=== PATIENT | female | born 1960 | race Caucasian/White ===

== ENCOUNTER → 2018-04-15 | Outpatient (CLI) | payer MEDICAID | LOC: COL.RAD 08:15 | DX: K86.89 Other specified diseases of pancreas (principal); R63.4 Abnormal weight loss | CPT/HCPCS: Q9967 ==

== ENCOUNTER → 2018-05-03 | Outpatient (CLI) | payer MEDICAID | LOC: COL.RAD 10:30 | DX: K86.2 Cyst of pancreas (principal); I81 Portal vein thrombosis; R93.2 Abnormal findings on diagnostic imaging of liver and biliary tract | CPT/HCPCS: A9585 ==

== ENCOUNTER 2018-05-21 12:57 | Day surgery (SDC) | payer MEDICAID ==
[~2018-05-21] VITALS: Ht 162.6 cm; Wt 42.6 kg
[2018-05-21] MEDS ORDERED: NEURONTIN600 MG/TAB PO (13:22)
[2018-05-21] MEDS ORDERED: EFFEXOR 75M75 MG/TAB PO (13:22)
[2018-05-21] MEDS ORDERED: TOPROL XL 50MG50 MG PO (13:22)
[2018-05-21] MEDS ORDERED: VITAMIN D 50,1.25 MG PO (13:23)
[2018-05-21] MEDS ORDERED: KEPPRA 500MG500 MG PO (13:23)
[2018-05-21] MEDS ORDERED: PRIL40 PO (13:23)
[2018-05-21 13:24] VITALS: BP 147/101; PULSE 136; TEMP 98.4
[2018-05-21] MEDS ORDERED: AMITRIPTYLINE H25 M1 PO (13:24)
[2018-05-21] MEDS ORDERED: DILAUDID 2MG TAB2 MG PO (13:24)
[2018-05-21] MEDS ORDERED: ZOFRAN 4MG T4 MG/TAB PO (13:24)
[2018-05-21] MEDS ORDERED: LEVSIN0.125 M1 PO ×2 (14:54→16:21)
[2018-05-21 15:05] VITALS: BP 147/99; PULSE 113; TEMP 98.3
[2018-05-21 15:20] VITALS: BP 149/97; PULSE 107
[2018-05-21 15:35] VITALS: BP 150/101; PULSE 116
[2018-05-23] VITALS (92 sets, daily range): O2SAT 89–100
[2018-05-24] VITALS (590 sets, daily range): O2SAT 73–100
== END 2018-05-21 15:50 | disposition home or self-care (01) ==
LOC: SDCO 12:57
DX: K29.30 Chronic superficial gastritis without bleeding (principal); K44.9 Diaphragmatic hernia without obstruction or gangrene; K21.9 Gastro-esophageal reflux disease without esophagitis; K57.30 Diverticulosis of large intestine without perforation or abscess without bleeding; K64.0 First degree hemorrhoids; R63.4 Abnormal weight loss; I10 Essential (primary) hypertension; G62.9 Polyneuropathy, unspecified; F17.210 Nicotine dependence, cigarettes, uncomplicated; G57.92 Unspecified mononeuropathy of left lower limb; G89.29 Other chronic pain; Z79.891 Long term (current) use of opiate analgesic; R56.9 Unspecified convulsions
CPT/HCPCS: J2704; J7030

== ENCOUNTER 2018-05-23 12:32 | Inpatient (IN) | payer MEDICAID ==
[~2018-05-23] VITALS: Ht 132.1 cm; Wt 49.3 kg
[~2018-05-23 12:32] MED LIST: AMITRIPTYLINE H25 M1 PO; DILAUDID 2MG TAB2 MG PO; EFFEXOR 75M75 MG/TAB PO; KEPPRA 500MG500 MG PO; LEVSIN0.125 M1 PO; NEURONTIN600 MG/TAB PO; PRIL40 PO; TOPROL XL 50MG50 MG PO; VITAMIN D 50,1.25 MG PO; ZOFRAN 4MG T4 MG/TAB PO
[2018-05-23] MEDS ORDERED: ERGOCALCIFER50000 IU PO (12:46)
[2018-05-23] MEDS ORDERED: REGLAN 10MG10 MG/TAB PO (12:46)
[2018-05-23 13:57] LABS: BASO % 0.1 % (0.0-2.0); EOS % 0.1 % (0-4.0); GRAN % 79.2 % (42.2-75.2); HEMOGLOBIN 13.7 g/dl (12.5-16.0); LYMPH % 12.3 % (20.0-51.0); MEAN CELL VOLUME 96 fl (80.0-100.0); MEAN CORPUSCULAR HEMOGLOBIN 35 pg (27.0-31.0); MEAN CORPUSCULAR HGB CONC 36 g/dl (33.0-37.0); MEAN PLATELET VOLUME 10.3 fl (7.4-10.4); MONO # 1.3 (0.1-0.6); MONO % 7.8 % (1.7-9.3); PLATELET COUNT 177 K/mm3 (130-400); RED BLOOD COUNT 3.95 M/mm3 (4.10-5.30); REDCELL DISTRIBUTION WIDTH-CV 12.9 % (11.5-14.5)
[2018-05-23 14:02] LABS: INR 1.2 (0.8-3.0); PROTHROMBIN TIME 13.7 SECONDS (9.7-12.8)
[2018-05-23 14:05] LABS: PARTIAL THROMBOPLASTIN TIME 34.3 SECONDS (26.0-37.0)
[2018-05-23 14:09] LABS: ALANINE AMINOTRANSFERASE 22 U/L (9-52); ALBUMIN 2.7 gm/dL (3.5-5.0); ALKALINE PHOSPHATASE 238 U/L (50-136); ANION GAP 10 mmol/L (7-16); AST,SGOT 40 U/L (15-37); BILIRUBIN,TOTAL 1.5 mg/dL (0.0-1.0); BLOOD UREA NITROGEN 7 mg/dL (7-17); C-REACTIVE PROTEIN 1.1 mg/dL (0.0-0.9); CALCIUM 8.1 mg/dL (8.4-10.2); CARBON DIOXIDE 26 mmol/L (22-30); CHLORIDE 91 mmol/L (98-107); CREATININE, serum 0.62 mg/dL (0.52-1.25); GLUCOSE 112 mg/dL (74-106); LIPASE 297 U/L (23-300); MAGNESIUM 1.3 mg/dL (1.6-2.3); PHOSPHOROUS 4.5 mg/dL (2.5-4.5); SODIUM 128 mmol/L (137-145); TOTAL PROTEIN 6.4 gm/dL (6.4-8.2)
[2018-05-23 14:13] LABS: POTASSIUM 2.2 mmol/L (3.4-5.0)
[2018-05-23 14:18] LABS: AMMONIA < 9 umol/L (11-35); TROPONIN-I < 0.012 ng/mL (0.000-0.034)
[2018-05-23 16:20] LABS: COLLECTION METHOD CLEAN CATCH
[2018-05-23 16:29] LABS: MUCOUS Present /lpf; PH 6 (5-8); SQUAMOUS EPITHELIAL 0-2 /hpf; URINE APPEARANCE Clear; URINE BACTERIA None Seen /hpf; URINE BILIRUBIN Negative (NEGATIVE); URINE BLOOD Negative (NEGATIVE); URINE COLOR Yellow; URINE GLUCOSE Negative (NEGATIVE); URINE KETONE Negative (NEGATIVE); URINE LEUKOCYTE ESTERASE Negative (NEGATIVE); URINE NITRATE Positive (NEGATIVE); URINE PROTEIN(semi-quant) Negative (NEGATIVE); URINE RBC 0-2 /hpf; URINE UROBILINOGEN Negative (NEGATIVE)
[2018-05-23 16:38] LABS: TRICYCLIC ANTIDEPRESS URINE NEGATIVE
[2018-05-23 18:00] VITALS: BP 142/113; PULSE 91; TEMP 98.8
[2018-05-23 18:01] VITALS: BP 142/113; PULSE 91; TEMP 98.8
[2018-05-23 20:00] VITALS: BP 148/99; PULSE 84; TEMP 97.3
[2018-05-24] VITALS (9 sets, daily range): BP systolic 102–178; BP diastolic 59–98; PULSE 82–115; TEMP 97–98.8
[2018-05-24 05:07] LABS: BASO % 0.1 % (0.0-2.0); EOS % 0.1 % (0-4.0); GRAN # 12.8 (1.4-6.5); GRAN % 81.1 % (42.2-75.2); HEMOGLOBIN 12.8 g/dl (12.5-16.0); LYMPH # 1.6 (1.2-3.4); LYMPH % 10.4 % (20.0-51.0); MEAN CELL VOLUME 97 fl (80.0-100.0); MEAN CORPUSCULAR HEMOGLOBIN 34 pg (27.0-31.0); MEAN CORPUSCULAR HGB CONC 36 g/dl (33.0-37.0); MEAN PLATELET VOLUME 10.1 fl (7.4-10.4); MONO # 1.2 (0.1-0.6); MONO % 7.7 % (1.7-9.3); PLATELET COUNT 136 K/mm3 (130-400); RED BLOOD COUNT 3.73 M/mm3 (4.10-5.30); REDCELL DISTRIBUTION WIDTH-CV 12.9 % (11.5-14.5)
[2018-05-24 05:18] LABS: ALBUMIN 2.3 gm/dL (3.5-5.0); CALCIUM 7.4 mg/dL (8.4-10.2); CREATININE, serum 0.57 mg/dL (0.52-1.25); MAGNESIUM 2.3 mg/dL (1.6-2.3); PHOSPHOROUS 3.3 mg/dL (2.5-4.5); POTASSIUM 3.3 mmol/L (3.4-5.0); TOTAL PROTEIN 5.5 gm/dL (6.4-8.2)
[2018-05-25] VITALS (7 sets, daily range): BP systolic 85–128; BP diastolic 63–89; PULSE 65–102; TEMP 98–99.8
[2018-05-25 07:06] LABS: BASO % 0.3 % (0.0-2.0); EOS # 0.3 (0.0-0.7); EOS % 2.8 % (0-4.0); GRAN # 6.1 (1.4-6.5); GRAN % 59.7 % (42.2-75.2); LYMPH # 2.9 (1.2-3.4); LYMPH % 28.8 % (20.0-51.0); MEAN CORPUSCULAR HEMOGLOBIN 34 pg (27.0-31.0); MEAN CORPUSCULAR HGB CONC 33 g/dl (33.0-37.0); MONO # 0.8 (0.1-0.6); PLATELET COUNT 132 K/mm3 (130-400); RED BLOOD COUNT 3.49 M/mm3 (4.10-5.30); REDCELL DISTRIBUTION WIDTH-CV 13.2 % (11.5-14.5)
[2018-05-25 07:10] LABS: HEMATOCRIT 36.2 % (37.0-47.0); MEAN CELL VOLUME 104 fl (80.0-100.0)
[2018-05-25 07:16] LABS: BILIRUBIN,TOTAL 0.7 mg/dL (0.0-1.0); CALCIUM 7.5 mg/dL (8.4-10.2); CREATININE, serum 0.59 mg/dL (0.52-1.25); POTASSIUM 3.6 mmol/L (3.4-5.0)
[2018-05-26 04:16] VITALS: BP 111/74; PULSE 105; TEMP 99.4
[2018-05-26 06:27] LABS: MAGNESIUM 1.6 mg/dL (1.6-2.3); PHOSPHOROUS 2.9 mg/dL (2.5-4.5); POTASSIUM 3.6 mmol/L (3.4-5.0)
[2018-05-26 07:36] VITALS: BP 114/81; PULSE 77; TEMP 98.4
[2018-05-26 11:39] VITALS: BP 109/62; PULSE 68; TEMP 98.5
[2018-05-26 16:04] VITALS: BP 106/59; PULSE 72; TEMP 98.1
[2018-05-26 20:00] VITALS: BP 97/69; PULSE 99; TEMP 98.4
[2018-05-26 22:15] VITALS: BP 110/64; PULSE 104
[2018-05-27] VITALS (7 sets, daily range): BP systolic 87–121; BP diastolic 55–91; PULSE 94–122; TEMP 97.9–100.3
[2018-05-27 11:45] LABS: CARBOHYDRATE ANTIGEN CA 19-9 21 U/mL (<35)
[2018-05-27 12:30] LABS: GASTRIN 45 pg/mL (())
[2018-05-27 15:06] LABS: STOOL CHLORIDE 77 mmol/L (()); STOOL MAGNESIUM 2 mg/dL (()); STOOL POTASSIUM 12 mmol/L (()); STOOL SODIUM 113 mmol/L (())
[2018-05-27 15:26] LABS: STOOL OSMOLALITY 266 mOsm/kg (())
[2018-05-27] MEDS ORDERED: CIPRO 500MG TA500 MG PO (16:35)
[2018-05-27] MEDS ORDERED: FLAGYL500 MG PO (16:35)
[2018-05-27] MEDS ORDERED: PANCREAZE 437501 ECC PO (16:38)
[2018-05-27] MEDS ORDERED: ANTI-DIARRHEAL2 MG PO (16:38)
== END 2018-05-27 18:49 | disposition home or self-care (01) | DRG 391 ==
LOC: COL.ER 12:32 → MEDICAL 16:04 → ICU 16:04 → MEDICAL 05-24 16:44
PROVIDERS: Emergency Medicine; Hospitalist; Internal Medicine; Internal Medicine Gastroenterology
PROC: 02HV33Z Insertion of Infusion Device into Superior Vena Cava, Percutaneous Approach (ICD-10-PCS; principal; 2018-05-23)
DX: R11.2 Nausea with vomiting, unspecified (principal); E43 Unspecified severe protein-calorie malnutrition; I81 Portal vein thrombosis; E87.1 Hypo-osmolality and hyponatremia; R64 Cachexia; N39.0 Urinary tract infection, site not specified; Z68.1 Body mass index [BMI] 19.9 or less, adult; E83.42 Hypomagnesemia; I10 Essential (primary) hypertension; E87.6 Hypokalemia; G40.909 Epilepsy, unspecified, not intractable, without status epilepticus; F17.210 Nicotine dependence, cigarettes, uncomplicated; R62.7 Adult failure to thrive; B96.20 Unspecified Escherichia coli [E. coli] as the cause of diseases classified elsewhere
CPT/HCPCS: 99223-AI; 99233-AI; 99239; C1751; J0744; J1650; J2060; J2405; J2704; J3475; J3480; J7030; J7120; Q9967

== ENCOUNTER 2018-08-02 15:31 | Observation (INO) | payer MEDICAID ==
[~2018-08-02] VITALS: Ht 162.6 cm; Wt 42.8 kg
[~2018-08-02 15:31] MED LIST changes: +ANTI-DIARRHEAL2 MG PO; +CIPRO 500MG TA500 MG PO; +ERGOCALCIFER50000 IU PO; +FLAGYL500 MG PO; +PANCREAZE 437501 ECC PO; +REGLAN 10MG10 MG/TAB PO
[2018-08-02 16:39] LABS: HEMATOCRIT 41.1 % (37.0-47.0); HEMOGLOBIN 14.1 g/dl (12.5-16.0); MEAN CELL VOLUME 95 fl (80.0-100.0); MEAN CORPUSCULAR HEMOGLOBIN 33 pg (27.0-31.0); MEAN CORPUSCULAR HGB CONC 34 g/dl (33.0-37.0); MEAN PLATELET VOLUME 10.7 fl (7.4-10.4); PLATELET COUNT 222 K/mm3 (130-400); RED BLOOD COUNT 4.31 M/mm3 (4.10-5.30); REDCELL DISTRIBUTION WIDTH-CV 12.7 % (11.5-14.5)
[2018-08-02 16:56] LABS: ALANINE AMINOTRANSFERASE 20 U/L (9-52); ALBUMIN 2.7 gm/dL (3.5-5.0); ALKALINE PHOSPHATASE 164 U/L (50-136); ANION GAP 6 mmol/L (7-16); AST,SGOT 26 U/L (15-37); BILIRUBIN,TOTAL 0.4 mg/dL (0.0-1.0); BLOOD UREA NITROGEN 5 mg/dL (7-17); CARBON DIOXIDE 25 mmol/L (22-30); CHLORIDE 94 mmol/L (98-107); CREATININE, serum 0.53 mg/dL (0.52-1.25); GLUCOSE 95 mg/dL (74-106); MAGNESIUM 1.5 mg/dL (1.6-2.3); SODIUM 125 mmol/L (137-145); TOTAL PROTEIN 6.2 gm/dL (6.4-8.2)
[2018-08-02 16:57] LABS: BAND 2 % (0-10); EOSINOPHIL 1 % (0-4); LYMPHOCYTE 8 % (20.0-51.0); NEUTROPHILS 89 % (42.0-75.2)
[2018-08-02 16:58] LABS: ANISOCYTOSIS 1+; PLATELET ESTIMATE NORMAL (NORMAL)
[2018-08-02 16:59] LABS: POTASSIUM 2.9 mmol/L (3.4-5.0)
[2018-08-02 17:16] LABS: VALPROIC ACID (DEPAKENE) < 10.0 ug/mL (50.0-100.0)
[2018-08-02 17:47] LABS: COLLECTION METHOD CATHETER
[2018-08-02 18:03] LABS: PH 6 (5-8); URINE APPEARANCE Clear; URINE BACTERIA None Seen /hpf; URINE BILIRUBIN Negative (NEGATIVE); URINE BLOOD Negative (NEGATIVE); URINE COLOR Yellow; URINE GLUCOSE Negative (NEGATIVE); URINE KETONE Negative (NEGATIVE); URINE LEUKOCYTE ESTERASE Negative (NEGATIVE); URINE NITRATE Negative (NEGATIVE); URINE PROTEIN(semi-quant) Negative (NEGATIVE); URINE RBC 0-2 /hpf; URINE UROBILINOGEN Negative (NEGATIVE)
[2018-08-02 18:11] LABS: PROLACTIN 17.2 ng/mL (3.0-18.6)
[2018-08-02 20:09] VITALS: BP 148/86; PULSE 84; TEMP 99.4
[2018-08-02 22:16] LABS: CALCIUM 7.5 mg/dL (8.4-10.2); CREATININE, serum 0.51 mg/dL (0.52-1.25); POTASSIUM 3.4 mmol/L (3.4-5.0)
[2018-08-02 22:53] LABS: TRICYCLIC ANTIDEPRESS URINE NEGATIVE
[2018-08-03] VITALS (7 sets, daily range): BP systolic 113–153; BP diastolic 68–89; PULSE 88–100; TEMP 97.6–98.9
[2018-08-03 06:40] LABS: BASO % 0.3 % (0.0-2.0); EOS % 0.2 % (0-4.0); GRAN # 11.9 (1.4-6.5); GRAN % 78.5 % (42.2-75.2); HEMATOCRIT 41.2 % (37.0-47.0); HEMOGLOBIN 14.1 g/dl (12.5-16.0); LYMPH # 2.3 (1.2-3.4); LYMPH % 15.1 % (20.0-51.0); MEAN CELL VOLUME 94 fl (80.0-100.0); MEAN CORPUSCULAR HEMOGLOBIN 32 pg (27.0-31.0); MEAN CORPUSCULAR HGB CONC 34 g/dl (33.0-37.0); MEAN PLATELET VOLUME 10.9 fl (7.4-10.4); MONO # 0.8 (0.1-0.6); MONO % 5.4 % (1.7-9.3); PLATELET COUNT 227 K/mm3 (130-400); RED BLOOD COUNT 4.37 M/mm3 (4.10-5.30)
[2018-08-03 06:52] LABS: CALCIUM 7.9 mg/dL (8.4-10.2); CREATININE, serum 0.48 mg/dL (0.52-1.25); MAGNESIUM 1.9 mg/dL (1.6-2.3)
[2018-08-04 03:56] VITALS: BP 117/74; PULSE 87; TEMP 98.6
[2018-08-04 06:37] LABS: BASO # 0.1 (0.0-0.2); BASO % 0.6 % (0.0-2.0); EOS # 0.2 (0.0-0.7); EOS % 1.9 % (0-4.0); GRAN # 8.6 (1.4-6.5); GRAN % 67.4 % (42.2-75.2); HEMOGLOBIN 12.2 g/dl (12.5-16.0); LYMPH # 2.9 (1.2-3.4); LYMPH % 22.4 % (20.0-51.0); MEAN CELL VOLUME 97 fl (80.0-100.0); MEAN CORPUSCULAR HEMOGLOBIN 32 pg (27.0-31.0); MEAN CORPUSCULAR HGB CONC 33 g/dl (33.0-37.0); MEAN PLATELET VOLUME 10.9 fl (7.4-10.4); MONO # 0.9 (0.1-0.6); MONO % 7.2 % (1.7-9.3); PLATELET COUNT 226 K/mm3 (130-400); RED BLOOD COUNT 3.82 M/mm3 (4.10-5.30); REDCELL DISTRIBUTION WIDTH-CV 13.2 % (11.5-14.5)
[2018-08-04 06:43] LABS: CALCIUM 7.6 mg/dL (8.4-10.2); CREATININE, serum 0.47 mg/dL (0.52-1.25); MAGNESIUM 1.6 mg/dL (1.6-2.3); POTASSIUM 4.4 mmol/L (3.4-5.0)
[2018-08-04 08:06] VITALS: BP 142/87; PULSE 93; TEMP 98.1
[2018-08-04 11:51] VITALS: BP 141/84; PULSE 97; TEMP 97.5
[2018-08-04] MEDS ORDERED: PANCREAZE 437501 ECC PO (12:08)
[2018-08-04] MEDS ORDERED: DEPAKOTE500 MG PO (12:09)
== END 2018-08-04 13:00 | disposition home or self-care (01) ==
LOC: COL.ER 15:31 → MEDICAL 17:16
PROVIDERS: Emergency Medicine; Hospitalist
DX: E87.1 Hypo-osmolality and hyponatremia (principal); R41.82 Altered mental status, unspecified; R56.9 Unspecified convulsions; E83.42 Hypomagnesemia; D72.829 Elevated white blood cell count, unspecified; K86.1 Other chronic pancreatitis; G89.29 Other chronic pain; K21.9 Gastro-esophageal reflux disease without esophagitis; F32.9 Major depressive disorder, single episode, unspecified; E43 Unspecified severe protein-calorie malnutrition; F17.210 Nicotine dependence, cigarettes, uncomplicated; Z88.0 Allergy status to penicillin; Z88.5 Allergy status to narcotic agent; Z88.8 Allergy status to other drugs, medicaments and biological substances; Z82.49 Family history of ischemic heart disease and other diseases of the circulatory system
CPT/HCPCS: G0378; J0696; J1644; J3475; J7030

== ENCOUNTER → 2019-10-15 | Outpatient (CLI) | payer MEDICARE, MEDICAID ==
[~2019-10-15] MED LIST changes: +ALDACTONE 100M100 MG PO; +CREON 120000 U-1 ECC PO; +DEPAKOTE500 MG PO; +DUO-KAPS1 CAP PO; +FOLIC ACID 11 MG/TA1 PO; +NATURE'S BLEND100 M2 PO; +REMERON 15M15 MG/TA1 PO; +ZOFRAN ODT4 MG PO
== END ==
LOC: COL.RAD 13:28
DX: K86.1 Other chronic pancreatitis (principal)
CPT/HCPCS: Q9967

== ENCOUNTER 2020-08-12 15:31 | Emergency (ER) | payer MEDICARE, MEDICAID ==
[~2020-08-12] VITALS: Ht 162.6 cm; Wt 62.3 kg
[2020-08-12 16:10] LABS: HEMATOCRIT 39.7 % (37.0-47.0); HEMOGLOBIN 12.3 g/dl (12.5-16.0); MEAN CELL VOLUME 76 fl (80.0-100.0); MEAN CORPUSCULAR HEMOGLOBIN 24 pg (27.0-31.0); MEAN CORPUSCULAR HGB CONC 31 g/dl (33.0-37.0); MEAN PLATELET VOLUME 9.7 fl (7.4-10.4); PLATELET COUNT 272 K/mm3 (130-400); RED BLOOD COUNT 5.21 M/mm3 (4.10-5.30); REDCELL DISTRIBUTION WIDTH-CV 17.8 % (11.5-14.5)
[2020-08-12 16:22] LABS: ALBUMIN 4.3 gm/dL (3.5-5.0); BILIRUBIN,TOTAL 0.4 mg/dL (0.0-1.0); C-REACTIVE PROTEIN 0.8 mg/dL (0.0-0.9); CALCIUM 8.8 mg/dL (8.4-10.2); CREATININE, serum 0.68 (0.52-1.25); POTASSIUM 3.8 mmol/L (3.4-5.0); TOTAL PROTEIN 7.5 gm/dL (6.4-8.2)
[2020-08-12 16:28] LABS: INR 1.2 (0.8-3.0); PROTHROMBIN TIME 12.9 SECONDS (9.7-12.8)
[2020-08-12 17:23] LABS: ANISOCYTOSIS 1+; BAND 1 % (0-10); EOSINOPHIL 1 % (0-4); LYMPHOCYTE 33 % (20.0-51.0); MICROCYTOSIS 1+; NEUTROPHILS 62 % (42.0-75.2); PLATELET ESTIMATE NORMAL (NORMAL)
[2020-08-12 17:52] LABS: COLLECTION METHOD CLEAN CATCH
[2020-08-12 18:03] LABS: MUCOUS Present /lpf; PH 6 (5-8); SQUAMOUS EPITHELIAL 0-2 /hpf; URINE APPEARANCE Clear; URINE BACTERIA None Seen /hpf; URINE BILIRUBIN Negative (NEGATIVE); URINE BLOOD Negative (NEGATIVE); URINE COLOR Straw; URINE GLUCOSE Negative (NEGATIVE); URINE KETONE Negative (NEGATIVE); URINE LEUKOCYTE ESTERASE Trace (NEGATIVE); URINE NITRATE Negative (NEGATIVE); URINE PROTEIN(semi-quant) Negative (NEGATIVE); URINE RBC 0-2 /hpf; URINE UROBILINOGEN Negative (NEGATIVE)
[2020-08-12 18:24] VITALS: BP 136/74; PULSE 76; TEMP 98.4
== END 2020-08-12 18:37 | disposition home or self-care (01) ==
LOC: COL.ER 15:31
PROVIDERS: Emergency Medicine
DX: K86.1 Other chronic pancreatitis (principal); Z88.0 Allergy status to penicillin; Z88.8 Allergy status to other drugs, medicaments and biological substances; Z88.6 Allergy status to analgesic agent
CPT/HCPCS: Q9967

== ENCOUNTER → 2020-09-17 | Outpatient (REF) | payer MEDICARE, MEDICAID | LOC: ZCOL.LAB 07:13 → EDSTATUS 07:14 | DX: R05 Cough (principal); R06.02 Shortness of breath; Z20.828 Contact with and (suspected) exposure to other viral communicable diseases ==

== ENCOUNTER 2021-02-24 14:33 | Inpatient (IN) | payer MEDICARE, MEDICAID ==
[~2021-02-24] VITALS: Ht 162.6 cm; Wt 54.1 kg
[2021-02-24] MEDS ORDERED: ASPIRIN 81M81 MG/TA2 PO (16:00)
[2021-02-24] MEDS ORDERED: CELEXA 20MG20 MG/TAB PO (16:01)
[2021-02-24] MEDS ORDERED: LIPITOR 40MG TA40 MG PO (16:01)
[2021-02-24] MEDS ORDERED: NICODERM C21 MG/PATC TD (16:02)
[2021-02-24] MEDS ORDERED: BUSPAR DIVIDOSE15 MG PO (16:03)
[2021-02-24] MEDS ORDERED: DESYREL 50MG50 MG PO (16:04)
[2021-02-24] MEDS ORDERED: ONE-A-DAY ESSE1 EACH PO (16:10)
[2021-02-24 19:16] VITALS: BP 121/80; PULSE 86; TEMP 97.7
[2021-02-25 05:39] VITALS: BP 131/73; PULSE 83; TEMP 98.4
[2021-02-25 15:45] VITALS: BP 99/62; PULSE 91; TEMP 99
[2021-02-26 00:02] VITALS: BP 96/62; PULSE 72; TEMP 98.2
[2021-02-26 05:49] VITALS: BP 95/54; PULSE 74; TEMP 98.5
[2021-02-26 17:41] VITALS: BP 97/55; PULSE 69; TEMP 97.5
[2021-02-27 05:46] VITALS: BP 91/64; PULSE 62; TEMP 98.6
[2021-02-27 07:47] VITALS: BP 111/66
[2021-02-27 17:33] VITALS: BP 92/57; PULSE 62; TEMP 98.5
[2021-02-27 18:04] VITALS: BP 111/65; PULSE 62
[2021-02-28 05:06] VITALS: BP 127/64; PULSE 57; TEMP 98.5
[2021-02-28 15:36] VITALS: BP 127/72; PULSE 65; TEMP 97.7
[2021-03-01 04:44] VITALS: BP 130/74; PULSE 77; TEMP 97
[2021-03-01 15:06] VITALS: BP 114/63; PULSE 51; TEMP 97.9
[2021-03-02 04:22] VITALS: BP 129/67; PULSE 52; TEMP 98.4
[2021-03-02 15:45] VITALS: BP 120/66; PULSE 58; TEMP 98.2
[2021-03-03 05:52] VITALS: BP 117/61; PULSE 57; TEMP 98.6
[2021-03-03 16:44] VITALS: BP 115/67; PULSE 62; TEMP 98.4
[2021-03-04 04:02] VITALS: BP 128/69; PULSE 54; TEMP 97.1
[2021-03-04 16:54] VITALS: TEMP 98.5
[2021-03-04 17:41] VITALS: BP 113/65; PULSE 57
[2021-03-05 05:39] VITALS: BP 108/64; PULSE 64; TEMP 99
[2021-03-05 08:00] VITALS: TEMP 97.6
[2021-03-05 15:41] VITALS: BP 121/62; PULSE 59; TEMP 98.2
[2021-03-06 05:29] VITALS: BP 141/69; PULSE 61; TEMP 98.4
[2021-03-06 06:18] LABS: BASO # 0.1 (0.0-0.2); BASO % 0.3 % (0.0-2.0); EOS # 0.1 (0.0-0.7); EOS % 0.8 % (0-4.0); GRAN # 9.8 (1.4-6.5); GRAN % 67.5 % (42.2-75.2); HEMOGLOBIN 11.2 g/dl (12.5-16.0); LYMPH # 3.5 (1.2-3.4); LYMPH % 23.9 % (20.0-51.0); MEAN CELL VOLUME 77 fl (80.0-100.0); MEAN CORPUSCULAR HEMOGLOBIN 23 pg (27.0-31.0); MEAN CORPUSCULAR HGB CONC 30 g/dl (33.0-37.0); MEAN PLATELET VOLUME 9.6 fl (7.4-10.4); MONO % 6.7 % (1.7-9.3); PLATELET COUNT 388 K/mm3 (130-400); REDCELL DISTRIBUTION WIDTH-CV 18.7 % (11.5-14.5)
[2021-03-06 06:26] LABS: HEMATOCRIT 36.9 % (37.0-47.0)
[2021-03-06 06:31] LABS: ALBUMIN 3.6 gm/dL (3.5-5.0); BILIRUBIN,TOTAL 0.2 mg/dL (0.0-1.0); CREATININE, serum 0.7 (0.52-1.25); POTASSIUM 4.3 mmol/L (3.4-5.0)
[2021-03-06 16:06] VITALS: BP 132/74; PULSE 56; TEMP 98.5
[2021-03-07 05:29] VITALS: BP 121/66; PULSE 53; TEMP 98
[2021-03-07 15:24] VITALS: BP 129/57; PULSE 60; TEMP 98.1
[2021-03-08 05:41] VITALS: BP 127/81; PULSE 57; TEMP 98
[2021-03-08 16:25] VITALS: BP 121/61; PULSE 51; TEMP 97.8
[2021-03-09 04:35] VITALS: BP 125/60; PULSE 81; TEMP 97
[2021-03-09 16:07] VITALS: BP 126/76; PULSE 53; TEMP 97.9
[2021-03-10 05:11] VITALS: BP 126/68; PULSE 52; TEMP 97.3
[2021-03-10] MEDS ORDERED: PROBIOTIC ACID1 EAC3 PO (08:57)
[2021-03-10] MEDS ORDERED: MYLICON 8080 MG/TAB. PO (08:57)
[2021-03-10] MEDS ORDERED: TYLENOL 325MG325 MG PO (08:57)
[2021-03-10] MEDS ORDERED: NICODERM C21 MG/PATC TD (09:04)
== END 2021-03-10 14:05 | disposition home or self-care (01) | DRG 57 ==
PROVIDERS: Physician Assistant; ADMIT Internal Medicine
DX: I69.351 Hemiplegia and hemiparesis following cerebral infarction affecting right dominant side (principal); I10 Essential (primary) hypertension; G40.909 Epilepsy, unspecified, not intractable, without status epilepticus; I69.392 Facial weakness following cerebral infarction; K21.9 Gastro-esophageal reflux disease without esophagitis; G62.9 Polyneuropathy, unspecified; G89.29 Other chronic pain; K59.00 Constipation, unspecified; F17.210 Nicotine dependence, cigarettes, uncomplicated; Z79.82 Long term (current) use of aspirin; Z79.891 Long term (current) use of opiate analgesic; F41.9 Anxiety disorder, unspecified; Z88.0 Allergy status to penicillin; Z88.5 Allergy status to narcotic agent
CPT/HCPCS: 99222-AI; 99231-AI; 99232-AI

== ENCOUNTER 2021-07-27 07:30 | Outpatient (CLI) | payer MEDICARE, MEDICAID ==
[~2021-07-27] VITALS: Ht 162.6 cm; Wt 48.4 kg
[~2021-07-27 07:30] MED LIST changes: +ASPIRIN 81M81 MG/TA2 PO; +BUSPAR DIVIDOSE15 MG PO; +CELEXA 20MG20 MG/TAB PO; +DESYREL 50MG50 MG PO; +LIPITOR 40MG TA40 MG PO; +MYLICON 8080 MG/TAB. PO; +NICODERM C21 MG/PATC TD; +ONE-A-DAY ESSE1 EACH PO; +PROBIOTIC ACID1 EAC3 PO; +TYLENOL 325MG325 MG PO
[2021-07-27 08:28] LABS: HEMATOCRIT 43.2 % (37.0-47.0); HEMOGLOBIN 13.5 g/dl (12.5-16.0); INR 1.2 (0.8-3.0); MEAN CELL VOLUME 81 fl (80.0-100.0); MEAN CORPUSCULAR HEMOGLOBIN 25 pg (27.0-31.0); MEAN CORPUSCULAR HGB CONC 31 g/dl (33.0-37.0); PLATELET COUNT 180 K/mm3 (130-400); PROTHROMBIN TIME 13.1 SECONDS (9.7-12.8); RED BLOOD COUNT 5.36 M/mm3 (4.10-5.30); REDCELL DISTRIBUTION WIDTH-CV 18.8 % (11.5-14.5)
[2021-07-27] MEDS ORDERED: TYLENOL 325MG325 MG PO (08:29)
[2021-07-27 08:32] LABS: CREATININE, serum 0.72 (0.52-1.25); POTASSIUM 3.8 mmol/L (3.4-5.0)
[2021-07-27] MEDS ORDERED: PLAVIX 75MG TAB75 MG PO (08:34)
[2021-07-27] MEDS ORDERED: FLORAJEN A20 Billion PO (08:35)
[2021-07-27] MEDS ORDERED: NICODERM C21 MG/PATC TD (08:37)
[2021-07-27 09:16] VITALS: BP 124/81; PULSE 63; TEMP 98.9
[2021-07-27 10:00] VITALS: BP 159/79; PULSE 71; TEMP 98.9
--- NOTE | 2021-07-27 10:00 | NUR ---
MALACHI complete and Loop recorder implatation started
[2021-07-27 10:15] VITALS: BP 148/81; PULSE 63; TEMP 98.9
[2021-07-27] MEDS ORDERED: CLEOCIN HCL300 MG PO (10:29)
[2021-07-27 10:30] VITALS: BP 155/81; PULSE 63; TEMP 98.9
--- NOTE | 2021-07-27 10:30 | NUR ---
Up to bathroom with steady gait. INT discontinued intact
[2021-07-27 10:45] VITALS: BP 158/81; PULSE 72; TEMP 98.9
--- NOTE | 2021-07-27 10:45 | NUR ---
Discharge instructions given. Transferred to private car by shira
== END 2021-07-27 10:45 | disposition home or self-care (01) ==
LOC: COL.RAD 07:30
PROVIDERS: Internal Medicine Cardiovascular Disease
DX: I63.9 Cerebral infarction, unspecified (principal)

== ENCOUNTER → 2021-08-19 | Outpatient (CLI) | payer MEDICARE, MEDICAID ==
[~2021-08-19] MED LIST changes: +CLEOCIN HCL300 MG PO; +FLORAJEN A20 Billion PO; +PLAVIX 75MG TAB75 MG PO
== END ==
LOC: COL.RAD 09:28
DX: N83.292 Other ovarian cyst, left side (principal); K85.91 Acute pancreatitis with uninfected necrosis, unspecified; K83.8 Other specified diseases of biliary tract; K83.1 Obstruction of bile duct; Z96.89 Presence of other specified functional implants
CPT/HCPCS: Q9967

== ENCOUNTER 2023-08-15 12:52 | Inpatient (IN) | payer MEDICARE, MEDICAID ==
[~2023-08-15] VITALS: Wt 37.3 kg
[~2023-08-15 12:52] MED LIST changes: +FERRO-TIME325 MG PO; +PROTONIX 40MG T40 MG PO
[2023-08-15 14:14] LABS: BASO # 0.1 K/mm3 (0.0-0.2); BASO % 0.3 % (0.0-2.0); GRAN # 18.8 K/mm3 (1.4-6.5); GRAN % 85.7 % (42.2-75.2); HEMATOCRIT 37.2 % (37.0-47.0); HEMOGLOBIN 12.6 g/dl (12.5-16.0); LYMPH # 1.8 K/mm3 (1.2-3.4); LYMPH % 8.1 % (20.0-51.0); MEAN CELL VOLUME 92 fl (80.0-100.0); MEAN CORPUSCULAR HEMOGLOBIN 31 pg (27-31); MEAN CORPUSCULAR HGB CONC 34 g/dl (33.0-37.0); MEAN PLATELET VOLUME 10.5 fl (7.4-10.4); MONO % 4.5 % (1.7-9.3); PLATELET COUNT 247 K/mm3 (130-400); RED BLOOD COUNT 4.06 M/mm3 (4.10-5.30); REDCELL DISTRIBUTION WIDTH-CV 16.8 % (11.5-14.5)
[2023-08-15 14:25] LABS: ALBUMIN 1.9 gm/dL (3.4-4.8); BILIRUBIN,TOTAL 3.1 mg/dL (0.2-1.2); C-REACTIVE PROTEIN 16.12 mg/dL (0.00-0.50); CALCIUM 8.8 mg/dL (8.4-10.2); CREATININE, serum 0.7 mg/dL (0.57-1.11); POTASSIUM 4.3 mmol/L (3.5-4.5); TOTAL PROTEIN 6.4 gm/dL (6.2-8.1)
[2023-08-15] MEDS ORDERED: FOLIC ACID 11 MG/TA1 PO (14:46)
[2023-08-15] MEDS ORDERED: LEXAPRO20 MG PO (14:47)
[2023-08-15] MEDS ORDERED: PLAVIX 75MG TAB75 MG PO (14:55)
[2023-08-15] MEDS ORDERED: PROTONIX 40MG T40 MG PO (14:56)
[2023-08-15] MEDS ORDERED: ROXICODONE 55 MG/TAB PO (15:16)
[2023-08-15] MEDS ORDERED: ARICEPT10 MG PO (15:17)
[2023-08-15] MEDS ORDERED: TOPROL XL 25MG25 MG PO (15:18)
[2023-08-15] MEDS ORDERED: REMERON 15M15 MG/TA1 PO (15:18)
[2023-08-15] MEDS ORDERED: COZAAR 25MG25 MG/TAB PO (15:18)
[2023-08-15] MEDS ORDERED: ANTI-DIARRHEAL2 MG PO (15:21)
[2023-08-15 15:27] LABS: COLLECTION METHOD CLEAN CATCH
[2023-08-15 15:53] LABS: URINE APPEARANCE Cloudy (CLEAR/HAZY); URINE COLOR Yellow (YELLOW)
[2023-08-15 15:54] LABS: URINE BLOOD 2+ (NEGATIVE); URINE GLUCOSE Negative (NEGATIVE); URINE KETONE Negative (NEGATIVE); URINE NITRATE Negative (NEGATIVE); URINE PROTEIN(semi-quant) TRACE (NEGATIVE)
[2023-08-15 15:55] LABS: SQUAMOUS EPITHELIAL 0-2 /hpf (0-10); URINE BACTERIA Moderate /hpf (NONE SEEN); URINE RBC 0-2 /hpf (0-2)
--- NOTE | 2023-08-15 21:10 | NUR ---
REPORT RECIEVED FROM JOCY IN ED
[2023-08-15 21:54] VITALS: BP 129/74; PULSE 76; TEMP 97.9
[2023-08-15 23:05] LABS: INR 1.1 (0.8-3.0); PROTHROMBIN TIME 11.8 SECONDS (9.7-12.8)
[2023-08-15 23:08] LABS: PARTIAL THROMBOPLASTIN TIME 29.4 SECONDS (26.0-37.0)
--- NOTE | 2023-08-15 23:10 | NUR ---
PATIENT ARRIVED FROM ED, WITH TELE ON AND 2L O2 NC. NS RUNNING THROUGH 20 G RFA AT 75ML/HR, PATIENT APPEARS JAUNDICE AND SEVERLY UNDERWEIGHT. SHE IS ALSO WEAK AND ASSISSTED WITH ADMISSION QUESTIONS. VSS ARE 115/56, 86 PULSE,97.4 TEMP, 16 RR AND 02 95. ORIENTED TO ROOM.
[2023-08-15 23:15] LABS: CALCIUM 8.4 mg/dL (8.4-10.2); CREATININE, serum 0.65 mg/dL (0.57-1.11); POTASSIUM 4.2 mmol/L (3.5-4.5)
--- NOTE | 2023-08-15 23:40 | NUR ---
CALL PLACED TO HOSPITALIST, TANMAY, ABOUT LUCY'S PO HOME MEDS IN REGARDS TO NPO STATUS. TORB WAS TO GIVE PO HOME MEDS.
[2023-08-15 23:53] VITALS: BP 115/66; PULSE 88; TEMP 97.4
[2023-08-16] VITALS (12 sets, daily range): BP systolic 98–155; BP diastolic 60–85; PULSE 75–93; TEMP 97.4–98.7
--- NOTE | 2023-08-16 | NUR ---
MEPOPLEX APPLIED TO SACRUM.
--- NOTE | 2023-08-16 05:58 | NUR ---
CALL PLACED TO HOSPITALIST FOR 90/53 BP. HOSPITALIST REPLIED TORB WITH NO NEW ORDERS AT THIS TIME
[2023-08-16 06:07] LABS: HEMOGLOBIN 11.7 g/dl (12.5-16.0); MEAN CELL VOLUME 95 fl (80.0-100.0); MEAN CORPUSCULAR HEMOGLOBIN 31 pg (27-31); MEAN CORPUSCULAR HGB CONC 32 g/dl (33.0-37.0); MEAN PLATELET VOLUME 10.5 fl (7.4-10.4); PLATELET COUNT 197 K/mm3 (130-400); RED BLOOD COUNT 3.82 M/mm3 (4.10-5.30); REDCELL DISTRIBUTION WIDTH-CV 17.2 % (11.5-14.5)
[2023-08-16 06:09] LABS: HEMATOCRIT 36.4 % (37.0-47.0)
[2023-08-16 06:36] LABS: ALBUMIN 1.6 gm/dL (3.4-4.8); CALCIUM 8.1 mg/dL (8.4-10.2); CREATININE, serum 0.61 mg/dL (0.57-1.11); POTASSIUM 3.8 mmol/L (3.5-4.5); TOTAL PROTEIN 5.2 gm/dL (6.2-8.1)
[2023-08-16 06:43] LABS: ANISOCYTOSIS 1+; BAND 1 % (0-10); LYMPHOCYTE 8 % (20.0-51.0); NEUTROPHILS 83 % (42.0-75.2); PLATELET ESTIMATE NORMAL (NORMAL)
[2023-08-16 06:44] LABS: HYPOCHROMIA 1+
--- NOTE | 2023-08-16 08:07 | NUR ---
THROUGHOUT THE NIGHT LUCY COMPLAINED OF 9/10 ABDOMINAL PAIN AND PO SATISH AND DILAUDID WAS GIVEN. LUNG SOUNDS AUSCULTATED WHEEZES BILATERALLY UPPER LOBES ON INSP AND EXP. SHE HAS 3L NC AND RT IS CURRENTLY BEDSIDE AND WILL REDUCE FLOW TO 2L. SHE IS AXO X4 AND RATES CURRENT PAIN 5/10. CALL LIGHT WITHIN REACH, CONSULT FOR GI PLACED AND ANTICIPATED FOR TODAY.
--- NOTE | 2023-08-16 09:59 | NUR ---
Initial visit; Patient thanked Implant Polisher for looking in on her and offering prayer and God's blessings. Implant Polisher will continue to follow-up with patient .
--- NOTE | 2023-08-16 10:49 | NUR ---
Met with Dr. Adams, pt, pt's - Toni, myself and Dr. Cha to review case. Currently pt is a Full Code- during discussion pt decided to be made a DNR. Dr. Adams reviewed case with pt along with GOC. Pt is going to take today to consider Palliative Care as well as declining placement for Peg. ST eval pending. Pt is admitted for Cachexia/Abdominal Pain/Aspiration PNA. I will notify ERIC Kay for further discussions for GOC. Pt is tearful but did express that she has many family members who are a support to them. "I don't want to do things that will be hurtful- I'm not strong enough.". Pt stated she had had premonitions concerning her ability to live. Pt requested for the ramiro to come visit- I called Billingschayito Winslow and notified him of pt's need.
--- NOTE | 2023-08-16 12:55 | NUR ---
Follow-up visit by request: Patient wanted In Store Marketer to return for a visit having learned that she has a short time to live. She may choose to be with a feeding tube to lengthen her life somewhat. In Store Marketer followed her lead and spoke about her feeling God's presence and lead to get in touch with her children. Also, In Store Marketer mentioned that the fact that she listened to God means she has a relationship with God and can count on His voice speaking to her when she is still and listens. She said In Store Marketer helped her and is looking forward to seeing In Store Marketer until she is discharged to go home. In Store Marketer offered blessings.
--- NOTE | 2023-08-16 13:28 | NUR ---
Assessment completed this am. Alert and oriented x4. NS infusing at 75ml/hr to RFA. NPO but requests coffee- per Dr. Cha, patient may have 1 cup of coffee but otherwise NPO until speech evaluates. x1 assist with cane to BR, gait unsteady. O2 2L/NC. Denies SOA. Reports baseline pain is 7/10 to RUQ- current pain rating is 9/10. Dilaudid administered for c/o pain. at bedside.
--- NOTE | 2023-08-16 14:12 | NUR ---
Had second meeting with ERIC Goldberg and Tala REYES concerning GOC. At this time pt voiced that she would proceed with placement of Peg tube at and defer going into Hospice. ERIC Kay assisted pt with necessary information being faxed to . Pt plans to discharge to home upon discharge.
--- NOTE | 2023-08-16 15:45 | NUR ---
Chief Mechanical Officer met with patient and her , Toni (ph#[phone]) to discuss discharge planning. Lauren HERNADEZ is also at bedside to discuss goals of care. Patient lives in [place] with Toni and sees Dr. Nguyen at [facility] for primary care. Patient obtains medications from [facility] in [place] and advised they sometimes have issues affording medications as they have to meet their deductible before medications are covered. Patient uses a cane for ambulation and advised she has been needing assistance with ADLS from Toni lately. Patient advised she hasn't been able to drive the last couple of weeks. Lauren and ERIC discussed goals of care with patient as she is in the process of being scheduled for a PEG tube placement at [facility] with her normal GI provider. Patient stated she wants to have the PEG tube placed and her main goal is to return home. Patient is not interested in hospice services at this time. During this conversation, Toni received a call from CAROLINA Dawn at [facility] who requested labs be faxed to her so they can get surgery scheduled for PEG placement. ERIC faxed labs to [phone]. ERIC also mentioned to patient that after PEG tube placement, [facility] may get HH services set up for them and patient would be interested in this. Patient had expressed interest in completing DPOA-HC, SW will follow up tomorrow. Discharge Plan: Home
--- NOTE | 2023-08-16 19:09 | NUR ---
Dilaudid IV administered for c/o abdominal pain. Rated pain at that time 9/10 and now rates pain 7/10 which she reports is her baseline. Speech Therapy eval completed. Tolerated general diet for late lunch and dinner. IV site infilltrated earlier in shift. Unsuccessful re-stick x2 by this nurse- Alcon Szymanski RN able to start #20g x1 stick to LFA. IVF infusing without difficulty. Gait unsteady and requires assist x1 with cane. at bedside.
--- NOTE | 2023-08-16 20:00 | NUR ---
Patient resting in bed with at bedside. Rates her pain a 9/10, pain meds given. Assessment complete. Assissted patient to bathroom and back to bed. Denies any other needs. Call light and personal items in reach. Bed in low postion and non-slip footwear in place.
[2023-08-17 01:22] VITALS: BP_SYST 155
[2023-08-17 03:05] VITALS: BP 154/80; PULSE 88; TEMP 97.9
[2023-08-17 04:49] VITALS: BP_SYST 154
[2023-08-17 05:35] LABS: HEMOGLOBIN 12.2 g/dl (12.5-16.0); MEAN CELL VOLUME 94 fl (80.0-100.0); MEAN CORPUSCULAR HEMOGLOBIN 31 pg (27-31); MEAN CORPUSCULAR HGB CONC 33 g/dl (33.0-37.0); MEAN PLATELET VOLUME 10.5 fl (7.4-10.4); PLATELET COUNT 226 K/mm3 (130-400); RED BLOOD COUNT 3.89 M/mm3 (4.10-5.30); REDCELL DISTRIBUTION WIDTH-CV 17.5 % (11.5-14.5)
[2023-08-17 05:38] LABS: HEMATOCRIT 36.5 % (37.0-47.0)
--- NOTE | 2023-08-17 06:00 | NUR ---
Patient resting in bed. States her pain is 10/10, IV pain meds given. No changes over night. Call light and personal items in reach. Bed in low position
[2023-08-17 06:07] LABS: ALBUMIN 1.8 gm/dL (3.4-4.8); BILIRUBIN,TOTAL 2.5 mg/dL (0.2-1.2); CALCIUM 8.4 mg/dL (8.4-10.2); CREATININE, serum 0.67 mg/dL (0.57-1.11); PHOSPHOROUS 2.9 mg/dL (2.3-4.7); POTASSIUM 3.6 mmol/L (3.5-4.5); TOTAL PROTEIN 5.9 gm/dL (6.2-8.1)
[2023-08-17 06:22] LABS: BILIRUBIN,DIRECT 1.8 mg/dL (0.0-0.5)
[2023-08-17 07:36] VITALS: BP 138/82; PULSE 85; TEMP 98.3
--- NOTE | 2023-08-17 08:00 | NUR ---
Patient sitting up in bed doing a breathing TX. A&Ox4. VSS. IV CDI, fluids infusing. Reports pain in abdomen, pain medication given by prior nurse. Refusing a warm blanket for the abdomen. Call light within reach
--- NOTE | 2023-08-17 10:32 | NUR ---
Follow-up visit and prayer: Patient states she is feeling better this morning after Program Host complimented her on how much better she looks this morning. Program Host states that Shayna lookes as if she had a good night's sleep. She said she not only slept well but had a wonderful meal which makes her feel better. 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 Her , Jose Miguel joined her and Program Host for prayer and Further blessings.
[2023-08-17] MEDS ORDERED: OMNICEF 300MG300 MG PO (11:08)
[2023-08-17] MEDS ORDERED: ROXICODONE 55 MG/TAB PO ×2 (11:17)
--- NOTE | 2023-08-17 12:10 | NUR ---
Discharge paperwork reviewed with the patient and . Patient verbalized an understanding to follow doctors orders. Patient ordering lunch before leaving. Call light within reach
--- NOTE | 2023-08-17 12:37 | NUR ---
IV removed, tip intact. Gauze and coban applied. Dr Cha in the room talking with the patient and . No further needs expressed. Call light within reach
--- NOTE | 2023-08-17 13:06 | NUR ---
Patient transfered in wheelchair by nursing staff to awaiting vehicle.
--- NOTE | 2023-08-17 17:00 | NUR ---
Firearms Specialist assisted patient in completing DPOA-HC paperwork. ERIC and JUANITA Aldrich signed as witnesses. Patient designated her and sister. SW placed a copy in patient's chart, then provided original and copies to patient.
== END 2023-08-17 13:06 | disposition home or self-care (01) | DRG 871 ==
LOC: COL.ER 12:52 → MEDICAL 18:42
PROVIDERS: Internal Medicine; Nurse Practitioner; Nurse Practitioner Family; ADMIT Internal Medicine
DX: A41.9 Sepsis, unspecified organism (principal); J69.0 Pneumonitis due to inhalation of food and vomit; J96.01 Acute respiratory failure with hypoxia; K86.0 Alcohol-induced chronic pancreatitis; E87.1 Hypo-osmolality and hyponatremia; E87.20 Acidosis, unspecified; N39.0 Urinary tract infection, site not specified; E46 Unspecified protein-calorie malnutrition; Z68.1 Body mass index [BMI] 19.9 or less, adult; Z66 Do not resuscitate; Z51.5 Encounter for palliative care; E78.5 Hyperlipidemia, unspecified; K21.9 Gastro-esophageal reflux disease without esophagitis; F41.9 Anxiety disorder, unspecified; I10 Essential (primary) hypertension; F17.210 Nicotine dependence, cigarettes, uncomplicated; I95.9 Hypotension, unspecified; E83.52 Hypercalcemia; E87.8 Other disorders of electrolyte and fluid balance, not elsewhere classified; K29.70 Gastritis, unspecified, without bleeding; F10.10 Alcohol abuse, uncomplicated; L89.159 Pressure ulcer of sacral region, unspecified stage; K83.8 Other specified diseases of biliary tract; G62.9 Polyneuropathy, unspecified; G40.909 Epilepsy, unspecified, not intractable, without status epilepticus; K76.0 Fatty (change of) liver, not elsewhere classified; R65.20 Severe sepsis without septic shock; Z86.73 Personal history of transient ischemic attack (TIA), and cerebral infarction without residual deficits; Z88.0 Allergy status to penicillin; Z88.8 Allergy status to other drugs, medicaments and biological substances; Z79.899 Other long term (current) drug therapy; Z79.02 Long term (current) use of antithrombotics/antiplatelets
CPT/HCPCS: C9113; J0696; J1170; J7030; Q9967